=== PATIENT | female | born 1980 | race Caucasian/White ===

== ENCOUNTER 2016-06-10 15:40 | Outpatient (CLI) | payer MEDICAID ==
[~2016-06-10] VITALS: Ht 162.6 cm; Wt 82.3 kg
[2016-06-10 15:55] VITALS: BP 123/70; RESP 16; Ht 162.6 cm; Wt 82.3 kg
[2016-06-10] MEDS ORDERED: PREN1TAB17 PO (15:57)
[2016-06-10] MEDS ORDERED: IRON1TAB78 PO (15:58)
[2016-06-10] MEDS ORDERED: LACTATED RINGER'S 1,000 ML IV ONE (16:30)
[2016-06-10] MEDS ORDERED: TERBUTALINE 1 MG/ML INJ SC ONE (16:30)
[2016-06-10 17:49] LABS: URINE BLOOD (Dip) POC Negative (NEGATIVE)
--- NOTE | 2016-06-10 17:52 | TRIAGE ---
OB Triage Datetime Report Generated by CPN: 06/10/2016 17:52 Datetime: 06/10/2016 17:00 Stage of : OB Triage Labor Evaluation Frequency: 1-5 Monitor Mode: External Duration (sec)2399: 30-50 Heart Rate FHR Baseline Rate: 135 Variability: Moderate 6-25 bpm Accelerations: 15X15 Decelerations: None Category: Category I Pain Presence: None/Denies Pain Type: N/A Vaginal Exam Membrane Status: Intact Datetime: 06/10/2016 16:03 Stage of : OB Triage Assessment Type: Triage Maternal Assessment Level of Consciousness: Fully Conscious DTR's/Clonus: DTRs 2+; No Clonus Headache: Denies Blurred Vision: No Respiratory Effort: Unlabored; Regular Rhythm; Equal Expansion Breath Sounds, Left: Clear and Equal Breath Sounds, Right: Clear and Equal Nausea/Vomiting: Denies RUQ Epigastric Pain: Denies Lower Extremities Edema: None Degree: None Upper Extremities Edema: None Degree: None Facial Edema: None Temperature Route: Oral Fall Risk Assessment History of Falling: (0) No Secondary Diagnosis: (0) No Ambulatory Aid: (0) Bedrest/Nurse Assist IV Therapy: (0) No Gait: (0) Normal/Bedrest/Immobile Mental Status: (0) Oriented to Own Ability Fall Score: 0 Fall Risk Score Definition: No Risk: No action required Labor Evaluation Frequency: 2-3 Monitor Mode: External Duration (sec)2399: 30-60 Pattern: Normal: <= 5 Contractions in 10 Minutes Resting Tone [place]: Relaxed Heart Rate FHR Baseline Rate: 125 Monitor Mode: External US Variability: Moderate 6-25 bpm Accelerations: 15X15 Decelerations: None Pain Assessment Pain Scale: 0 Pain Presence: None/Denies Pain Type: N/A Datetime: 06/10/2016 16:01 Time of Arrival: 06/10/2016 15:37 EGA: 35.5 Arrived By: Ambulatory Arrived From: Office Chief Complaint: NSt saent patient US x 2-3 minutes Movement: Present Contractions: Denies/Absent Contractions: 2-3 Rupture of Membranes: Denies Vaginal Bleeding: None Vaginal Discharge: Denies Recent Sexual Intercouse: Denies Abdominal Trauma: Not Applicable Patient Complaints: Contractions Additional Patient Complaints: patient denies feeling UC, only pressure Time Provider Notified: 06/10/2016 16:13 Provider Notified: Dr. Richardson Initial Plan: [id number]
--- NOTE | 2016-06-10 17:53 | PN ---
DATE: The patient is a 35-year-old G3, P2, intrauterine at 35 weeks. The patient presented with NST for uterine contractions. The patient did not have any new complaints. Category I tracing. V ital signs within normal limits. ASSESSMENT: Intrauterine at 35-1/2 weeks. Vitals stable. The patient can be discharged home. Follow up with POLYSOMNOGRAPHER within 1 week. ER precautions are given. Stable on discharge. Dictated By: ELI POTTS MD /NTS Conf#: [id number] DID#: [id number]
--- NOTE | 2016-06-10 21:25 | NSTRPT ---
NST Information Datetime Report Generated by CPN: 06/10/2016 21:24 Datetime: 06/10/2016 14:23 NST Information EGA: 35.5 Test Number: 2 Time on Monitor: 06/10/2016 14:39 Time off Monitor: 06/10/2016 15:16 NST Duration (Min): 37 Reason for NST: Poor Growth Test and Monitor Explained: Monitor Explained; Test Explained; Verbalized Understanding Pulse: 71 Resp: 18 SBP: 94 DBP: 62 Test Evaluation NST Interventions: None Patient States Movement: Present Contraction Frequency: Q2-3 FHR Baseline : 130 Variability: Moderate 6-25bpm Accelerations: 15X15 Decelerations: None FHR Category: Category I NST Results: Reactive Comments: PT TO U/S. ROXANE-19.8 CM, CEP, Report given to Dr. Bhatia. New ordres received. send P t to OB-TRG. 1515-Explained to Pt Plan of care. Pt to OB-TRG as ordered. Follow up NST appointment calvin granados. Kick Count Instructions reviewed. Pt states underatnading. No furhter questions asked at this time. Electronically Signed By E-Signature: with User ID: [id number]
== END 2016-06-10 18:05 | disposition home or self-care (01) ==
LOC: OBT 15:40 → L-D 15:40 → OBT 18:05
PROVIDERS: ATTEND Obstetrics & Gynecology
DX: O62.9 Abnormality of forces of labor, unspecified (principal); O09.523 Supervision of elderly multigravida, third trimester; Z86.32 Personal history of gestational diabetes; Z3A.35 35 weeks gestation of pregnancy
CPT/HCPCS: 81003; 82962; J3105; J7120

== ENCOUNTER 2016-07-04 07:23 | Inpatient (IN) | payer OTHER ==
[~2016-07-04] VITALS: Ht 162.6 cm; Wt 83.5 kg
[~2016-07-04 07:23] MED LIST: IRON1TAB78 PO; PREN1TAB17 PO
[2016-07-04] MEDS: LACTATED RINGER'S 1,000 ML IV SCH ×2 (07:30→18:27)
[2016-07-04] MEDS ORDERED: LACTATED RINGER'S 1,000 ML IV SCH (07:55)
[2016-07-04 07:58] VITALS: Ht 162.6 cm; Wt 83.5 kg
[2016-07-04 07:59] VITALS: BP 111/66; PULSE 71
[2016-07-04] MEDS ORDERED: METHYLERGONOVINE 0.2 MG INJ IM PRN ×2 (08:00→10:30)
[2016-07-04] MEDS ORDERED: MISOPROSTOL 200 MCG TAB PR PRN ×2 (08:00→10:30)
[2016-07-04] MEDS ORDERED: OXYTOCIN 30 UNITS/LR 500 ML IV SCH (08:00)
[2016-07-04] MEDS ORDERED: CEFAZOLIN 2 GM/50 ML (PMX) 50 ML IV SCH (08:00)
[2016-07-04] MEDS ORDERED: CARBOPROST 250 MCG INJ IM PRN ×2 (08:00→10:30)
[2016-07-04] MEDS ORDERED: OXYTOCIN 30 UNITS/LR 500 ML IV PRN ×2 (08:00→10:30)
[2016-07-04 08:13] LABS: BASOPHILS % 0.4 % (0.0-2.0); EOSINOPHILS % 0.8 % (0.0-7.0); HEMATOCRIT 37.2 % (37.0-47.0); HEMOGLOBIN 12.5 g/dl (12.0-16.0); LYMPHOCYTES # 1.1 10^3/ul (0.8-2.9); LYMPHOCYTES % 18.4 % (15.0-51.0); MEAN CORPUSCULAR HEMOGLOBIN 30.5 pg (29.0-33.0); MEAN CORPUSCULAR HGB CONC 33.7 g/dl (32.0-37.0); MEAN CORPUSCULAR VOLUME 90.6 fl (82.0-101.0); MONOCYTE # 0.6 10^3/ul (0.3-0.9); MONOCYTES % 10.1 % (0.0-11.0); NEUTROPHIL # 4.3 10^3/ul (1.6-7.5); NEUTROPHILS % 70.3 % (39.0-77.0); PLATELET COUNT 231 10^3/UL (140-440); RED BLOOD COUNT 4.11 10^6/ul (4.20-5.40); RED CELL DISTRIBUTION WIDTH 14.7 % (11.5-14.5); UNCORRECTED WBC 6.1 10^3/ul (4.8-10.8); WHITE BLOOD COUNT 6.1 10^3/ul (4.8-10.8)
[2016-07-04 08:15] LABS: CONDITION 1; LH ANALYZER COMMENTS 1
[2016-07-04] MEDS ORDERED: ONDANSETRON 4 MG INJ IV STA (08:27)
[2016-07-04 08:30] LABS: INR 0.88; PARTIAL THROMBOPLASTIN TIME 26.5 Sec (25.0-35.0); PROTIME 11.9 Sec (12.2-14.2); PT RATIO 0.9
[2016-07-04] MEDS ORDERED: CITRIC ACID/NA CITRATE 30 ML CUP PO ONE ×2 (08:30→09:00)
[2016-07-04] MEDS ORDERED: ONDANSETRON 4 MG INJ ONE (08:37)
[2016-07-04] MEDS ORDERED: CITRIC ACID/NA CITRATE 30 ML CUP ONE (08:37)
[2016-07-04] MEDS ORDERED: EPHEDrine SULFATE 50 MG/5 ML SYG ONE (08:42)
[2016-07-04] MEDS ORDERED: morphine SULFATE/PF (10 MG/10 ML) INJ ONE (08:43)
[2016-07-04] MEDS ORDERED: OXYTOCIN 10 UNIT INJ ONE (08:43)
[2016-07-04] MEDS ORDERED: MIDAZOLAM 1 MG/ML 2 ML INJ ONE (08:43)
[2016-07-04] MEDS ORDERED: LACTATED RINGER'S 1,000 ML IV ONE (08:53)
[2016-07-04] MEDS ORDERED: ZOLPIDEM 5 MG TAB PO PRN (09:00)
[2016-07-04] MEDS ORDERED: HYDROmorphONE (0.2 MG/ML) 10ML SYG IV PRN ×3 (09:00)
[2016-07-04] MEDS ORDERED: NALOXONE (0.4 MG/ML) INJ IV PRN (09:00)
[2016-07-04] MEDS ORDERED: EPHEDrine SULFATE 50 MG/5 ML SYG IV PRN (09:00)
[2016-07-04] MEDS ORDERED: hydrALAzine 20 MG INJ IV PRN (09:00)
[2016-07-04] MEDS ORDERED: ONDANSETRON 4 MG INJ IV ONE (09:00)
[2016-07-04] MEDS ORDERED: DIPHENHYDRAMINE 50 MG INJ IV PRN (09:00)
[2016-07-04] MEDS ORDERED: KETOROLAC 30 MG INJ IV ONE (09:00)
[2016-07-04] MEDS ORDERED: ONDANSETRON 4 MG INJ IV PRN ×2 (09:00→13:00)
[2016-07-04] MEDS ORDERED: MEPERIDINE 25 MG INJ IV PRN (09:00)
--- NOTE | 2016-07-04 09:18 | PREOPHP ---
DATE OF ADMISSION: 07/04/2016 HISTORY OF PRESENT ILLNESS: Ms. Chiquis Cheek is a 35-year-old 3, para 2, EDC 07/11/2016, intrauterine at 39 weeks' gestational age, admitted today for a repeat delivery w ith tubal sterilization. She denies any contractions, vaginal bleeding, or discharge. Her care took place at [facility]. PAST MEDICAL HISTORY: None. MEDICATIONS: vitamins. PAST SURGICAL HISTORY: Times 2 previous sections. OBSTETRIC HISTORY: Times 2 previous C-sections. GYNECOLOGIC HISTORY: Twelve, regular, 3 to 4 days. Patient tested positive for chlamydia in the pr esent and treated with azithromycin. SOCIAL HISTORY: Denies any smoking, drugs, or alcohol. FAMILY HISTORY: None. PHYSICAL EXAMINATION: HEENT: Within normal. LUNGS: CTA bilateral. CARDIOVASCULAR: S1, S2, regular rhythm. ABDOMEN: Gravid, nontender. EXTREMITIES: Negative edema. No calf tenderness. PELVIC: Vaginal exam deferred. ASSESSMENT: A 35-year-old 3, para 2, intrauterine at 39 weeks' gestational age, a dvanced maternal age, previous x2, Rh negative. Desires elective repeat delivery . Declined vaginal after . The patient also desires tubal sterilization. PLAN: Consent for repeat with bilateral tubal ligation. Risks, benefits and alternatives explained. All questions were answered. Dictated By: OSCAR SPRAGUE/MEKA Conf#: [id number] DID#: [id number]
[2016-07-04] MEDS ORDERED: OXYTOCIN 30 UNITS/LR 500 ML IV ONE (10:16)
[2016-07-04] MEDS ORDERED: LANOLIN 7 GM TUBE TOP PRN (10:30)
[2016-07-04] MEDS: OXYTOCIN 30 UNITS/LR 500 ML IV SCH ×2 (11:15→14:42)
--- NOTE | 2016-07-04 11:48 | DELSUM ---
Delivery Summary A-C Datetime Report Generated by CPN: 07/04/2016 11:48 DELIVERY PERSONNEL Mentally Retarded Teacher: Mao, Gaby MATERNAL INFORMATION Delivery Anesthesia: Spinal Medications in Delivery: see anesthesia records Estimated Blood Loss (ml): 500 Placenta Cultured: No Maternal Complications: Other Other Maternal Complications: previous section LABOR SUMMARY EDC: 07/11/2016 00:00 EDC: 07/10/2016 00:00 No. Babies in Womb: 1 Attempted: No Labor Anesthesia: None LABOR INFORMATION Reason for Induction: Not Applicable Oxytocin: N/A Group B Beta Strep: Negative Antibiotics # of Doses: 1 Antibiotics Time of Last Dose: 914 Steroids Given: None Reason Steroids Not Administered: Not Applicable MEMBRANES Membranes Rupture Method: Artificial Rupture of Membranes: 07/04/2016 09:40 Length of Rupture (hr): 0.00 Amniotic Fluid Color: Clear Amniotic Fluid Amount: Moderate Amniotic Fluid Odor: None STAGES OF LABOR Stage 3 hr: 0 Stage 3 min: 1 CSECTION DELIVERY Primary Indication: Repeat Elective CSection Urgency: Non Elective CSection Incidence: Repeat Labor: No Labor Elective: Nonelective CSection Incision: Lower Uterine Transverse Sterilization Procedure: [place] BABY A INFORMATION Infant Delivery Date/Time: 07/04/2016 09:40 Method of Delivery: Born in Route : No : N/A Forceps: N/A Vacuum Extraction: N/A Shoulder Dystocia : No SHOULDER DYSTOCIA BABY A Delivery Date/Time: 07/04/2016 09:40 PRESENTATION/POSITION BABY A Presentation: Cephalic Cephalic Presentation: Vertex Vertex Position: Left Occipital Anterior Breech Presentation: N/A PLACENTA INFORMATION BABY A Placenta Delivery Time : 07/04/2016 09:41 Placenta Method of Delivery: Manual Removal Placenta Status: Delivered SCORES BABY A Heart Rate 1 min: >100 bpm Resp Effort 1 min: Good Cry Reflex Irritability 1 min: Cough/Sneeze/Pulls Away Muscle Tone 1 min: Active Motion Color 1 min: Blue/Pale Resuscitation Effort 1 min: Tactile Stimulation SCORE 1 MIN: 8 Heart Rate 5 min: >100 bpm Resp Effort 5 min: Good Cry Reflex Irritability 5 min: Cough/Sneeze/Pulls Away Muscle Tone 5 min: Active Motion Color 5 min: Body [place], Extremit Blue Resuscitation Effort 5 min: Tactile Stimulation SCORE 5 MIN: 9 INFANT INFORMATION BABY A Gestational Age at Delivery: 39.0 Gestational Status: Full Term- 39- 40.6 Weeks Outcome : Liveborn Condition : Stable Infant Sex: Female IDENTIFICATION/MEDS BABY A ID Band Number: [id number] ID Band Location: Right Leg; Left Arm Sensor Applied: Yes Sensor Number: [id number] Sensor Location : Cord Clamp Vitamin K Given : Not Given Erythromycin Given: Not Given WEIGHT/LENGTH BABY A Birthweight (gm): 4195 Infant Weight (lb): 9 Infant Weight (oz): 4 Infant Length (in): 20.50 Length (cm): 52.07 CORD INFORMATION BABY A No. Cord Vessels: 3 Nuchal Cord : Around Neck x1, Tight Cord Blood Taken: Yes Infant Suction: Nose; Pharynx
[2016-07-04 12:50] VITALS: BP_SYST 119; PULSE 52; RESP 20
[2016-07-04] MEDS ORDERED: HYDROmorphONE 1 MG/ML SYG IV PRN ×2 (13:00)
[2016-07-04] MEDS ORDERED: KETOROLAC 30 MG INJ IV PRN (13:00)
[2016-07-04 13:10] VITALS: BP 107/66; PULSE 54; RESP 18
[2016-07-04 14:10] VITALS: BP 112/69; PULSE 67; RESP 18
[2016-07-04 16:15] VITALS: BP 117/61; PULSE 84; RESP 18
[2016-07-04 19:30] VITALS: BP 112/64; RESP 20
[2016-07-04] MEDS: SENNA/DOCUSATE NA (8.6MG/50MG) TAB PO SCH (20:40)
[2016-07-05] MEDS: LACTATED RINGER'S 1,000 ML IV SCH (02:09)
[2016-07-05 03:30] VITALS: BP 100/56; PULSE 65; RESP 18
[2016-07-05 08:40] LABS: BASOPHILS % 0.3 % (0.0-2.0); EOSINOPHILS % 0.3 % (0.0-7.0); HEMATOCRIT 31.9 % (37.0-47.0); HEMOGLOBIN 10.8 g/dl (12.0-16.0); LYMPHOCYTES # 1.2 10^3/ul (0.8-2.9); LYMPHOCYTES % 11.4 % (15.0-51.0); MEAN CORPUSCULAR HEMOGLOBIN 31.1 pg (29.0-33.0); MEAN CORPUSCULAR VOLUME 91.6 fl (82.0-101.0); MEAN PLATELET VOLUME 8.7 fl (7.4-10.4); MONOCYTE # 0.9 10^3/ul (0.3-0.9); MONOCYTES % 8.8 % (0.0-11.0); NEUTROPHIL # 8.1 10^3/ul (1.6-7.5); NEUTROPHILS % 79.2 % (39.0-77.0); PLATELET COUNT 197 10^3/UL (140-440); RED BLOOD COUNT 3.48 10^6/ul (4.20-5.40); RED CELL DISTRIBUTION WIDTH 14.6 % (11.5-14.5); UNCORRECTED WBC 10.2 10^3/ul (4.8-10.8); WHITE BLOOD COUNT 10.2 10^3/ul (4.8-10.8)
[2016-07-05 08:49] VITALS: BP 118/72; PULSE 78; RESP 20
[2016-07-05 08:58] LABS: CONDITION 1; LH ANALYZER COMMENTS 1
[2016-07-05] MEDS: SENNA/DOCUSATE NA (8.6MG/50MG) TAB PO SCH ×2 (09:38→21:43)
[2016-07-05] MEDS ORDERED: OXYCODONE/ACETAMINOPHEN (5/325) TAB PO PRN ×2 (10:30)
--- NOTE | 2016-07-05 11:16 | OPR ---
DATE OF OPERATION: 07/04/2016 PREOPERATIVE DIAGNOSIS: A 35-year-old 3, para 2, intrauterine at 39 weeks gestati onal age. Previous x2, advanced maternal age, desires elective repeat delivery w ith bilateral tubal sterilization, declines EVAC. POSTOPERATIVE DIAGNOSIS: A 35-year-old 3, para 2, intrauterine at 39 weeks gestat ional age. Previous x2, advanced maternal age, desires elective repeat delivery with bilateral tubal sterilization, declines EVAC. OPERATION PERFORMED: Repeat low transverse delivery with bilateral tubal ligation, [place]at method. SURGEON: Darius Bhatia MD. EXHIBITION ORGANISER: Dr. Lam. FINDINGS: A viable female, 8 and 9 respectively at 1 and 5 minutes, weight 9 pounds 4 ounces. Normal uterus, tubes and ovaries. ESTIMATED BLOOD LOSS: 500 mL. SPECIMEN: Portion of the right and left fallopian tube. COMPLICATIONS OF PROCEDURE: None. TYPE OF ANESTHESIA: Spinal. DESCRIPTION OF PROCEDURE: After explaining the risks, benefits and alternatives, the patient had co nsent signed in chart, the patient was taken to the operating room where spinal anesthesia was found to be adequate. She was then prepared and draped in normal sterile fashion, placed in a dorsal sup ine position with a leftward tilt. A Pfannenstiel skin incision was then made with a scalpel and ca rried to the underlying layer of the fascia. The fascia was incised in the midline and the incision was extended laterally with Stephens scissors. The superior aspect of the fascial incision was grasped with curved clamps, elevated and the underlying rectus muscles dissected off bluntly. Attention wa s then turned to the inferior aspect of the incision which in similar fashion was grasped, tented up with curved clamps and the rectus muscles dissected off bluntly. The rectus muscle was i n midline, peritoneum identified, tented up and entered sharply with Metzenbaum scissors. The perit tyler incision was extended superiorly with good visualization of bladder. The bladder blade was th en inserted and the vesicouterine peritoneum identified, grasped with pickups and entered sharply wi th Metzenbaum scissors. This incision was extended laterally and a bladder flap created digitally. The bladder blade was then reinserted and the lower segment incised in transverse fashion with a sc alpel. The uterine incision was extended laterally. The bladder blade was removed and the infant's head delivered atraumatically. The nose and mouth were suctioned and cord clamped and cut. The in curtis was handed off to awaiting edger tailer. The placenta was then removed, the uterus exteriorize d and cleared of all clots and debris. The uterine incision was repaired with 1-0 chromic in a runn ing locked fashion. A second layer of same suture was used for imbrication and obtained excellent h emostasis. Attention was then turned to the fallopian tubes with a 3 cm segment of the left fallopi an tube was ligated with a free tie of plain gut and excised. Good hemostasis was noted. Similarly , the right fallopian tube was ligated and a 3 cm segment excised in similar fashion. Excellent hem ostasis was noted. The uterus was returned to the abdomen. The gutters were cleared of all clots. The peritoneum and rectus abdominis muscles were reapproximated with 2-0 Vicryl in an interrupted f ashion. The fascia was reapproximated with 0 Vicryl in an interrupted fashion. The skin was closed with tomas. The patient tolerated procedure well. Sponge, lap and needle counts correct x2. Th e patient was taken to recovery room in stable condition. Dictated By: DARIUS SPRAGUE/MEKA Conf#: [id number] DID#: [id number]
[2016-07-05] MEDS: IBUPROFEN 600 MG TAB PO SCH ×2 (11:38→17:29)
[2016-07-05 19:30] VITALS: BP 107/62; RESP 18
--- NOTE | 2016-07-05 19:57 | QN ---
Documentation Comment attending note pod 1 patient seen and evaluated no complaints positive ambulation, toleration diet, positive voiding/flatus vs stable afebrile abd dressing clean no distention nt uterine fundus below umbil extremity no edema, no calf tenderness a/ s/p r cd with btl pod 1 stable afebrile p/ iron supplement OSCAR GRANGER MD Jul 05, 2016 19:57
[2016-07-05] MEDS: FERROUS SULFATE (EC) 325 MG TAB PO SCH (21:43)
[2016-07-06] MEDS: IBUPROFEN 600 MG TAB PO SCH ×5 (00:10→23:53)
[2016-07-06 03:50] VITALS: BP 103/54; PULSE 69; RESP 19
[2016-07-06 08:15] VITALS: BP 96/56; PULSE 62; RESP 16
[2016-07-06] MEDS: FERROUS SULFATE (EC) 325 MG TAB PO SCH ×2 (10:29→21:27)
[2016-07-06] MEDS: SENNA/DOCUSATE NA (8.6MG/50MG) TAB PO SCH ×2 (10:29→21:00)
--- NOTE | 2016-07-06 12:48 | QN ---
Documentation Comment attending note pod 2 patient seen and evaluated no complaints positive ambulation, toleration diet, positive voiding/flatus vs stable afebrile abd c/d/i no distention nt uterine fundus below umbil extremity no edema, no calf tenderness a/ s/p r cd with btl pod 2 stable afebrile p/ d/c tomorrow f/u office this monday to remove tomas OSCAR GRANGER MD Jul 06, 2016 12:47
--- NOTE | 2016-07-06 12:49 | PD.PPDC ---
ASSOCIATE PROFESSOR OF GEOLOGY Discharge Instruction Condition Patient Condition: Fair Diet Diet: Resume Regular Diet Activity/Restrictions Restrictions: No Lifting No Driving No Sexual Activity Nothing in the Vagina No [place] No Tampons, douche Follow-up Follow-up with Physician: 4, Week/Weeks Provider Information: follow office this monday to reomove tmoas Return to clinic for GRAIN OILSEED OR PASTURE GROWER Instructions: Fever greater than 101 Chills Worsening abdominal pain Excessive Vaginal Bleeding More than 2 pads per hour Unable to tolerate diet OB Instructions: Breast Tenderness Depression Blurried Vision Headache Surgical Instructions: Incisional Drainage Incisional Redness OSCAR GRANGER MD Jul 06, 2016 12:49
--- NOTE | 2016-07-06 13:27 | DS ---
DATE OF ADMISSION: 07/04/2016 DATE OF DISCHARGE: PRIMARY DIAGNOSIS: A 35-year-old 3, para 2, intrauterine at 39 weeks gestational age, previous delivery x2, advanced maternal age, desires elective delivery, but w ith bilateral tubal sterilization, declines vaginal after . PROCEDURE: Repeat low transverse delivery with bilateral tubal ligation, Williams method. CONDITION ON DISCHARGE: Stable. ACTIVITY: None per vagina, no heavy lifting x6 weeks. DIET: Regular. MEDICATIONS ON DISCHARGE: 1. Motrin. 2. Percocet. 3. Iron 4. Colace. DISCHARGE SUMMARY: Ms. Chiquis Cheek is a 35-year-old 3, para 3, status post repeat low tr ansverse delivery with bilateral tubal ligation on 07/04/2016. She had a viable female, Ap gar 8 and 9 respectively at 1 and 5 minutes, weight 9 pounds 4 ounces. She had an uneventful postop day 1 and 2. She will be discharged on postop day 3. Her incision is clean, dry, and intact. She is ambulating, tolerating diet, positive flatulence, positive bowel movement. She will follow up i n the office this Monday to remove her tomas. Dictated By: OSCAR SPRAGUE/MEKA Conf#: [id number] DID#: [id number]
[2016-07-06 16:00] VITALS: BP 96/59; PULSE 64; RESP 18
[2016-07-06 20:00] VITALS: BP 110/58; PULSE 69; RESP 19
[2016-07-07 04:00] VITALS: BP 108/72; PULSE 61; RESP 18
[2016-07-07] MEDS: IBUPROFEN 600 MG TAB PO SCH ×2 (05:43→12:02)
[2016-07-07 08:00] VITALS: BP 110/64; PULSE 68; RESP 20
[2016-07-07] MEDS: SENNA/DOCUSATE NA (8.6MG/50MG) TAB PO SCH (09:00)
[2016-07-07] MEDS: FERROUS SULFATE (EC) 325 MG TAB PO SCH (09:30)
== END 2016-07-07 16:44 | disposition home or self-care (01) | DRG 766 ==
LOC: L-D 07:23 → EDUNIT# 09:00 → L-D 09:09 → PP1 12:49
PROVIDERS: ADMIT Obstetrics & Gynecology; ATTEND Obstetrics & Gynecology
PROC: 10D00Z1 Extraction of Products of Conception, Low, Open Approach (ICD-10-PCS; principal; 2016-07-05)
PROC: 0UL70ZZ Occlusion of Bilateral Fallopian Tubes, Open Approach (ICD-10-PCS; 2016-07-05)
PROC: 10907ZC Drainage of Amniotic Fluid, Therapeutic from Products of Conception, Via Natural or Artificial Opening (ICD-10-PCS; 2016-07-05)
DX: O34.211 Maternal care for low transverse scar from previous cesarean delivery (principal); O09.523 Supervision of elderly multigravida, third trimester; O69.1XX0 Labor and delivery complicated by cord around neck, with compression, not applicable or unspecified; P03.89 Newborn affected by other specified complications of labor and delivery; Z3A.39 39 weeks gestation of pregnancy; Z37.0 Single live birth
CPT/HCPCS: 82947; 82962; 85025; 85610; 85730; 86592; 86850; 86870; 86885; 86900; 86901; 88302; 94760; 99464; J0690; J2250; J2274; J2405; J2590; J2790; J7120